=== PATIENT | female | born 1950 | race Caucasian/White ===

== ENCOUNTER → 2023-05-04 10:08 | Outpatient (REF) | payer OTHER, SELFPAY | LOC: HWRAD 10:08 | PROVIDERS: ATTENDING PHYSICIAN Family Medicine | DX: M53.3 Sacrococcygeal disorders, not elsewhere classified (principal) | CPT/HCPCS: 72220 ==

== ENCOUNTER 2023-08-20 08:00 | Inpatient (IN) | payer OTHER, SELFPAY ==
[2023-08-19] VITALS (14 sets, daily range): BP systolic 91–167; BP diastolic 43–83; BMI 24.4; BMI 23.9
--- NOTE | 2023-08-19 00:26 | ED.GENMED ---
History of Present Illness
General
Chief Complaint: Abdominal Pain
Source: patient
Exam Limitations: none
Time Seen by Provider: 08/19/23 00:18
Nursing documentation reviewed up to this point in time: agreed with
Travel History
Have you had any contact with someone who has COVID-19?: No
Do you have any symptoms of coronavirus? Fever > 100 degrees, chills, cough, shortness of breath, sore throat, loss of taste or smell, muscle aches, or headache?: No
History of Present Illness
History of Present Illness:
The patient is a pleasant 72-year-old female with a past medical history of hypertension and hyperlipidemia who comes in with complaints of abdominal pain, nausea vomiting and diarrhea. Patient reports that when she woke up in the morning, she
experienced 1 episode of watery nonbloody diarrhea. Patient reports that she then felt well throughout the day and after eating dinner, experienced sudden onset of nausea, vomiting, sharp abdominal pain and another episode of diarrhea. Patient
reports she is still having severe abdominal pain located in her mid upper abdomen and radiating down to her mid lower abdomen. Patient also complains of severe nausea. She denies any past surgical history to her abdomen. She denies fever. She
denies sick contacts. She denies recent antibiotic use or travel history.
Past History
Past History
ED Past Medical History: HTN and Hypercholesterolemia
ED Past Surgical History: None and Other (Nasal surgery)
Social History
Tobacco: Non-smoker
Alcohol: Other
Drug: None
Personal:
Living: with family
Employment: Other
Family History
Family History: Other
Review of Systems
Review of Systems
Allergies reviewed?: Yes
Other source history: family
All Other Systems: ROS reviewed and negative except as documented in HPI and ROS
Constitutional: Reports no symptoms
EENT: Reports no symptoms
Respiratory: Reports no symptoms
Cardiac: Reports no symptoms
ABD/GI: Reports abdominal pain, nausea, vomiting and diarrhea
: Reports no symptoms
Musculoskeletal: Reports no symptoms
Skin: Reports no symptoms
Neurological: Reports no symptoms
Endocrine: Reports no symptoms
Hematologic/Lymphatic: Reports no symptoms
Psychiatric: Reports no symptoms
Phy Exam
Physical Exam
Physical Exam:
Physical Exam
General: Patient appears slightly anxious uncomfortable but is conversational
Neck: supple. no meningeal signs. normal posterior pharynx
Heart: s1/s2 regular rate and rhythm, no murmur. equal radial pulses.
Lungs: no acute respiratory distress. clear bilaterally
Abdomen: Soft. Nondistended. No pulsatile mass. Epigastric and mid abdominal tenderness. No rebound or guarding
Neuro: alert and oriented. no focal neurological deficits
Skin: no rash
Psychiatric: well kept. interactive and cooperative
Extremities: no edema. no calf tenderness. negative homans. good distal pulses
Course
Orders/Labs/Results
Orders:
Orders
08/19/23 00:25
Morphine Sulfate 4 mg IV NOW STA
08/19/23 00:26
Ondansetron Injectable [Zofran] 4 mg IV NOW STA
08/19/23 00:29
CT Abd/pelvis W Iv Cont Urgent
Comment:
Reason For Exam: ab pain, n/v/d
08/19/23 00:32
Electrocardiogram (*1) Urgent
Reason for Study: Abdominal Pain
EKG- Treatment ONCE
08/19/23 00:44
Complete Blood Count/With Diff Urgent
Comprehensive Metabolic Panel Urgent
Lipase Urgent
08/19/23 00:51
0.9% Sodium Chloride 500 ml [Nss] 500 ml IV ONCE
Abnormal Lab Results
08/19/23
00:44
WBC 16.3 H 10^3/uL
(4.8-10.8)
RBC 5.47 H 10^6/uL
(4.20-5.40)
MCV 72.6 L fL
(81.0-99.0)
MCH 24.5 L pg
(27.0-31.0)
MPV 11.1 H fL
(7.4-10.4)
Abs Immat Gran (auto) 0.1 H 10^3/uL
(0-0.05)
Absolute Neuts (auto) 13.7 H 10^3/uL
(1.4-6.5)
Absolute Monos (auto) 0.7 H 10^3/uL
(0.1-0.6)
Neutrophils % 83.6 H %
(42.2-75.2)
Lymphocytes % 11.2 L %
(20.5-51.1)
BUN 22 H mg/dl
(7-17)
Glucose 142 H mg/dl
(70-99)
Calcium 10.4 H mg/dl
(8.4-10.2)
AST 37 H U/L
(14-36)
Total Protein 8.7 H g/dl
(6.3-8.2)
Albumin 5.3 H g/dl
(3.5-5.0)
08/19/23 00:44
08/19/23 00:44
Vital Signs
Initial and Last Documented VS:
Initial Vital Signs
Temp Pulse Resp BP Pulse Ox
97.8 F 64 24 167/83 100
08/19/23 00:10 08/19/23 00:10 08/19/23 00:10 08/19/23 00:10 08/19/23 00:10
Last Documented Vital Signs
Temp Pulse Resp BP Pulse Ox
97.8 F 64 24 167/83 99
08/19/23 00:10 08/19/23 00:10 08/19/23 00:10 08/19/23 00:10 08/19/23 00:56
MDM/Problems Addressed
Differential Diagnosis Includes:
Acute gastroenteritis, acute appendicitis, acute diverticulitis
MDM/Problems Addressed:
Patient presents with acute abdominal pain, nausea vomiting and diarrhea
Chronic conditions affecting care: HTN
Acute Exacerbation and/or Progression of Chronic Illness:
Patient is acutely hypertensive, however, she is uncomfortable and I feel that hypertension is likely due to this discomfort
Acute Exacerbation and/or Progression of Chronic Illness: HTN
*Radiology
Radiology exam reviewed: radiology read reviewed
*Pulse Oximetry
Patient hypoxic: no
*EKG
Interpreted by ED Provider?: Yes
Interpretation: normal
Comparison EKG: no changes
Rate: normal
Rhythm: sinus arrhythmia
[place]: normal axis
Interval: normal interval
QRS Pattern: normal QRS
Ischemia: no ischemia
*Security Agent Interpretation
Rate: normal
Interpretation: normal
Rhythm: sinus
*Critical Care Note
Total Time (30-74mins, 75-104mins- exclusive of procedures): Not Applicable
ED Attending Note
-
Portions of this chart may have been created with voice recognition software.� Occasional wrong word or��sound alike� substitutions may have occurred due to the inherent limitations of voice recognition software.
Discharge Plan
Departure
Patient Disposition: Admit
Date of Disposition: 08/19/23
Time of Disposition: 02:45
Admit to: Med/Surg
Admit to doctor: Dr Kuhn
Presentation/result/management discussed w/ accepting MD/DO: Dr Kuhn
Patient with high blood pressure during this ER visit?: Yes
Condition: Good
Covid-19: Not Applicable
Discharge Problem:
Acute appendicitis
Prescriptions:
No Action
aspirin 81 MG tablet,delayed release (DR/EC)
81 mg PO DAILY
docosahexaenoic acid-epa 1 CAP capsule
1 cap PO DAILY
rosuvastatin 5 MG tablet
5 mg PO QPM
meclizine 12.5 MG tablet
12.5 mg PO TID Qty: 14 1RF
Referrals:
Michelle Ignacio, DO [Family Provider] -
Interventions
Interventions:
*Risk Screen - Suicide Last Done: 08/19/23 00:10
*General Assessment Last Done: 08/19/23 00:10
*Neglect/Abuse Screening Last Done: 08/19/23 00:10
ED- Fall Risk Assessment Last Done: 08/19/23 00:10
*ED COVID-19 Vaccine History Last Done: 08/19/23 00:10
QJ-Evynye-Lhqshqffgf Assessment Last Done: 08/19/23 00:56
Discharge Date and Time
Print Language: BRITISH
[2023-08-19] MEDS: ZOFRAN 4 MG IV ×4 (00:46→20:55)
[2023-08-19] MEDS: MORPHINE SULFATE 4 MG IV ×2 (00:47→03:02)
[2023-08-19 00:50] LABS: % Basophils 0.4 % (0-2); % Eosinophils 0.2 % (0-6); % Immature Granulocytes 0.4 % (0-0.5); % Lymphocytes 11.2 % (20.5-51.1); % Monocytes 4.2 % (1.7-9.3); % Neutrophils 83.6 % (42.2-75.2); Absolute Basophils 0.1 10^3/uL (0-0.2); Absolute Immature Granulocytes 0.1 10^3/uL (0-0.05); Absolute Lymphocytes 1.8 10^3/uL (1.2-3.4); Absolute Monocytes 0.7 10^3/uL (0.1-0.6); Absolute Neutrophils 13.7 10^3/uL (1.4-6.5); Hematocrit 39.7 % (37.0-47.0); Hemoglobin 13.4 g/dL (12.0-16.0); Mean Corp Hgb Conc. 33.8 g/dL (33.0-37.0); Mean Corpuscular Hgb 24.5 pg (27.0-31.0); Mean Corpuscular Volume 72.6 fL (81.0-99.0); Mean Platelet Volume 11.1 fL (7.4-10.4); Nucleated Red Blood Cells % 0 %; Platelet Count 271 10^3/uL (130-400); Red Blood Cell Count 5.47 10^6/uL (4.20-5.40); White Blood Cell Count 16.3 10^3/uL (4.8-10.8)
[2023-08-19] MEDS: NSS 500 IV (00:52)
[2023-08-19 01:06] LABS: ALT (SGPT) 24 U/L (0-35); AST (SGOT) 37 U/L (14-36); Albumin 5.3 g/dl (3.5-5.0); Alkaline Phosphatase 65 U/L (38-126); Blood Urea Nitrogen 22 mg/dl (7-17); Calcium 10.4 mg/dl (8.4-10.2); Carbon Dioxide 23 mmol/L (22-30); Chloride 102 mmol/L (98-107); Estimated Creatinine Clearance 35 ml/min; Glucose 142 mg/dl (70-99); Lipase 270 U/L (23-300); Potassium 4.2 mmol/L (3.5-5.1); Sodium 140 mmol/L (135-145); Total Protein 8.7 g/dl (6.3-8.2); eGFR 59.12
[2023-08-19] MEDS: ZOSYN 100 IV (03:02)
--- NOTE | 2023-08-19 04:26 | HPS.HSE ---
Family Physician
-
Family Physician: Michelle Ignacio
Medical History
Allergies / Home Medications
Allergies reflects when Allergies were last updated in [facility].
Home Medications with original date entered in [facility]
Physical Exam
Vital Signs
Vital Signs
Temp Pulse Resp BP Pulse Ox
97.8 F 72 17 134/62 96
08/19/23 00:10 08/19/23 04:00 08/19/23 04:00 08/19/23 04:00 08/19/23 04:00
Laboratory Results
-
08/19/23 00:44
08/19/23 00:44
Laboratory Results
Total Bilirubin 1.0 mg/dl (0.2-1.3) 08/19/23 00:44
AST 37 U/L (14-36) H 08/19/23 00:44
ALT 24 U/L (0-35) 08/19/23 00:44
Alkaline Phosphatase 65 U/L (38-126) 08/19/23 00:44
Lipase 270 U/L (23-300) 08/19/23 00:44
Impression/Plan
-
IMPRESSION:
PLAN:
--- NOTE | 2023-08-19 05:39 | HPS.HSE ---
Addendum entered and electronically signed by Codey Kuhn MD 08/19/23 08:46:
Patient seen and examined independently of admitting nurse practitioner. Agree with documented history and physical consistent with my current examination and evaluation.
HPI: 72-year-old female who reports recent history of abdominal bloating over the past few weeks which she has been managing with simethicone. Last night however after having dinner she developed the acute onset of periumbilical abdominal pain
which then localized to the right lower quadrant. She had a few episodes of diarrhea followed by persistent nausea vomiting prompting emergency department evaluation. She has never had pain like this in the past.
Medical history notable for hypertension and hypercholesterolemia. She has not had any prior abdominal surgical history.
Low-grade fevers, vital signs stable
She appears acutely ill and uncomfortable
On abdominal examination there is localized rebound and guarding from the periumbilical, suprapubic and right lower quadrant region.
CT imaging personally reviewed as well as radiologist report. There is a distended appendix filled with appendicoliths with surrounding inflammatory changes coursing from the right lower quadrant towards the lower midline.
Assessment: 72-year-old female with acute appendicitis and secondary localized peritonitis
Reviewed with patient and her at bedside history, examination and CT imaging consistent with acute appendicitis. Discussed both operative and nonoperative management options and associated risks/benefits of approaches. Patient is in
agreement to proceed with appendectomy.
Laparoscopic appendectomy reviewed in detail with the patient. Discussed operative technique utilizing diagrams or drawings, alternative management options, benefits and potential risks such as but not limited to bleeding, infectious or wound
healing complications, iatrogenic injury to surrounding viscera. Discussed the typical postoperative recovery pending operative findings.
Any of the patient's concerns or questions were fully addressed and informed consent was obtained.
Plan: Add on for OR schedule for laparoscopic appendectomy.
Empiric antibiotic coverage with Zosyn.
Nothing by mouth, IV fluid hydration and supportive care awaiting operative room availability.
SCDs for DVT prophylaxis
Original Note:
Family Physician
-
Family Physician: Michelle Ignacio
Chief Complaint
-
'abdominal pain'
History of Present Illness
72 year old patient with PMH of Hypertension and Hyperlipidemia, presents to ER with the c/o Abdominal pain since 7:30 PM last night associated with bloating, severe nausea and vomiting x5 episodes. States Pain is sharp at mid upper abdomen
radiating down to her mid lower abdomen and is constant 10/10. Reports she had bloating for several weeks and she took Simethicone but without relief. Reports chills, but denies fever, shortness of breath or chest pain. Denies any bloody stool, sick
contacts. No surgical history.
Medical History
Past Medical History
Past Medical History: Reports HTN and Hypercholesterolemia
Past Surgical History: Reports Other (Nasal surgery)
Social History
Tobacco: Non-smoker
Alcohol: Occasional
Drug: None
Living: With Family
Family History
Family History: Not pertinent
Allergies / Home Medications
Allergies reflects when Allergies were last updated in [facility].
Home Medications with original date entered in [facility]
Allergy/Medication List:
Allergies
Allergy/AdvReac Type Severity Reaction Status Date / Time
No Known Allergies Allergy Verified 08/19/23 00:10
Home Medications
aspirin 81 mg tablet,delayed release 81 mg PO DAILY 07/24/15
docosahexaenoic acid (dha)-epa 120 mg-180 mg capsule 1 cap PO DAILY 07/24/15
rosuvastatin 5 mg tablet 5 mg PO QPM 07/24/15
meclizine 12.5 mg tablet 12.5 mg PO TID #14 tabs 07/25/15
Review of Systems
-
History Source: Patient
A 12 point ROS was completed and negative except as noted: Yes
Constitutional: Reports No Symptoms
EENT: Reports No Symptoms
Respiratory: Reports No Symptoms
Cardiac: Reports No Symptoms
Abdomen/GI: Reports Abdominal Pain, Nausea and Vomiting
: Reports No Symptoms
Musculoskeletal: Reports No Symptoms
Skin: Reports No Symptoms
Neurological: Reports No Symptoms
Endocrine: Reports No Symptoms
Hematologic/Lymphatic: Reports No Symptoms
Psych: Reports No Symptoms
Physical Exam
Vital Signs
Vital Signs
Temp Pulse Resp BP Pulse Ox
97.8 F 72 17 134/62 96
08/19/23 00:10 08/19/23 04:00 08/19/23 04:00 08/19/23 04:00 08/19/23 04:00
Physical Exam
General: Well Developed, Well Nourished and No Apparent Distress
HEENT: NormoCephalic, Moist mucous membranes and Atraumatic
Respiratory: Clear and Non Labored Respirations
Cardiac: S1/S2 and Regular Rhythm
Breast: Deferred by me
GI: Soft, Normal Bowel Sounds and Tender (+ McBurney point )
Rectal: Deferred by Provider
Genito-urinary: Deferred by me
Musculoskeletal: No Clubbing, No Cyanosis and No Edema
Skin: Warm and Dry
Neuro: Awake, Oriented, AO x 3 and Nonfocal/grossly intact
Hematologic/Lymphatic: No Lymphadenopathy
Psych: Calm and Intact Judgment/Insight
Laboratory Results
-
08/19/23 00:44
08/19/23 00:44
Laboratory Results
Total Bilirubin 1.0 mg/dl (0.2-1.3) 08/19/23 00:44
AST 37 U/L (14-36) H 08/19/23 00:44
ALT 24 U/L (0-35) 08/19/23 00:44
Alkaline Phosphatase 65 U/L (38-126) 08/19/23 00:44
Lipase 270 U/L (23-300) 08/19/23 00:44
Data Reviewed
-
CT Scan: Report Reviewed by me
Lab Data: Labs Reviewed by me
Impression/Plan
-
72 year old female with c/o abdomen pain
# Abdomen pain likely due to Acute Appendicitis
-CT Abdomen: Findings suggests Acute Appendicitis
-WBC 16.3
-Continue IVF
-Continue Zosyn
-Continue IV Zofran for nausea
-Continue IV Morphine
for pain
# Hypertension
# Hyperlipemia
SCD Prophylaxis: Lovenox SQ
Full Code
--- NOTE | 2023-08-19 06:00 | PTCARENOTE ---
Pt arrived 2S via stretcher from ED. Pt was able to ambulate to bed. VSS. IVF infusing. Pts at the bedside. Bed iin lowest position and locked. Call wilkinson with in reach.
[2023-08-19] MEDS: NSS 1000 IV ×3 (06:40→23:04)
[2023-08-19] MEDS: ZOSYN 50 IV ×2 (08:38→20:50)
[2023-08-19] MEDS: FLUSH (NSS) 1 FLUSH IV (08:41)
[2023-08-19] MEDS: MORPHINE SULFATE 2 MG IV (08:41)
--- NOTE | 2023-08-19 11:06 | CM ---
Met with patient at the bedside; initial assessment completed
SANCHEZ explained; form signed @[id number]
Scheduled for OR today; NPO
Pharmacy verified: [facility] [address] [place] [address]
Patient reported that she and her live in a townhouse; 2 steps to enter; 14 steps between floors; powder room on the 1st floor; 2nd floor bathroom has tub w/shower
PLOF: reports she is independent with ambulation, stairs, and ADLs; drives
DME: none
SNF/rehab/home health utilization history: none
Transportation: will provide ride home
Plan: discharge to home when medically stable; CM will monitor for needs
--- NOTE | 2023-08-19 12:03 | W.SUR.PREOP ---
Pre-Operative Surgical Note
-
I have examined this patient prior to the performance of the scheduled procedure.
The patient's condition is unchanged from the time of the current History and
Physical and the patient is able to undergo the scheduled procedure.
[2023-08-19] MEDS: ZOSYN IV (12:37)
--- NOTE | 2023-08-19 13:22 | W.IMMPOSTOP ---
Addendum entered and electronically signed by Codey Kuhn MD 08/19/23 13:34:
#[id number]
Original Note:
Surgical Immed Post Op Note
-
Primary Surgeon: Hattie
Assisting Surgeon: Marquez ROJO
Pre-op Diagnosis: Acute appendicitis
Post-op Diagnosis: Purulent acute appendicitis with localized peritonitis
Procedure Performed: Laparoscopic appendectomy
Anesthesia Type: GETA +0.25% Marcaine
Specimen / Cultures: Appendix
Estimated Blood Loss: 6 mL
Complications: None immediate
Operative Findings: Distended, acutely inflamed appendix with surrounding inflammatory adhesions. Patchy gangrenous changes of appendiceal wall but no free perforation. Mesoappendix divided with harmonic. Base of the appendix taken flush with the
cecum utilizing Endo MANDY maciel 45 mm stapler. Surrounding purulent free fluid adjacent to the appendix in the mid pelvis all aspirated out and irrigated till clear. No abscess.
Plan: Start initially with liquid diet postoperatively monitoring for ileus. Continue Zosyn and anticipating discharge home on approximately 5-day course of oral antibiotic therapy
Patient's updated postoperatively via phone call
--- NOTE | 2023-08-19 14:50 | PTCARENOTE ---
Patient returned to her room from [facility] post laparoscopic appendectomy.The patient denies any pain at present.Vital signs are stable.All 4 lap sites are clean with no drainage.The patient is in her bed with the call wilkinson in reach.
[2023-08-19] MEDS: LOVENOX 40 MG SC (17:30)
[2023-08-19] MEDS: MYLICON 80 MG PO (21:23)
[2023-08-20] MEDS: ZOSYN 50 IV ×4 (01:39→20:21)
[2023-08-20 03:46] VITALS: BP 95/52
[2023-08-20] MEDS: TORADOL 10 MG IV ×2 (05:14→13:23)
[2023-08-20] MEDS: MYLICON 80 MG PO (05:28)
--- NOTE | 2023-08-20 07:56 | W.PN.GS2 ---
Today's Communication / Plan
-
`
Assessment / Plan
-
Assessment: 72 y/o female POD#1 s/p lap appy for acute appendicitis with localized peritonitis and purulence but no abscess
AFVSS
doing well post op
Plan: multimodal pain control options
continue IVF but at reduced rate
OOBTC/ambulating
hold on clears until more robust GI recovery and nausea subsiding
zosyn for appendicitis 7 day total post op abx course; d/c on augmentin
lovenox/scds/ambulation for VTEp
Subjective Data
-
Date of Service: August 20, 2023
pt seen and examined
feels bloated but starting to pass gas
naya clears
nausea at times but no vomiting
ambulating halls, voiding
Objective Data
-
Intake and Output
08/19/23 08/20/23 08/21/23
06:59 06:59 06:59
Intake Total 2950 / 2950
Balance 2950 / 2950
Intake:
Oral fluids 1380 / 1380
IV fluids (Total) 1420 / 1420
normosol 100 / 100
IV piggybacks 150 / 150
Other:
Number of approximated MODERATE 3
amounts of urine
Vital Signs
Temp Pulse Resp BP Pulse Ox
98.1 F 79 20 95/52 94
08/20/23 03:46 08/20/23 03:46 08/20/23 03:46 08/20/23 03:46 08/20/23 03:46
Lab Results
08/19/23 00:44
08/19/23 00:44
Calcium 10.4 mg/dl (8.4-10.2) H 08/19/23 00:44
Total Bilirubin 1.0 mg/dl (0.2-1.3) 08/19/23 00:44
AST 37 U/L (14-36) H 08/19/23 00:44
ALT 24 U/L (0-35) 08/19/23 00:44
Alkaline Phosphatase 65 U/L (38-126) 08/19/23 00:44
Total Protein 8.7 g/dl (6.3-8.2) H 08/19/23 00:44
Albumin 5.3 g/dl (3.5-5.0) H 08/19/23 00:44
Physical Exam
-
NAD AAOx3
ABD: softly distended, incisional and RLQ tenderness
incisions with glue dressings and localized ecchymosis, no hematomas
[2023-08-20 07:57] VITALS: BP 92/50
[2023-08-20] MEDS: NSS 1000 IV ×2 (08:05→20:22)
[2023-08-20] MEDS: TYLENOL 1000 MG PO (11:01)
[2023-08-20 11:28] VITALS: BP 93/49
[2023-08-20] MEDS: LEXAPRO 10 MG PO (13:26)
--- NOTE | 2023-08-20 14:24 | CM ---
Patient seen bedside wit spouse.
S/p appe yesterday.
Continues IV anbx.
Switched to inpatient. IMM provided.
[id number] and spouse are of CM availability should needs arise.
Plan: home no needs anticipated.
[2023-08-20 15:20] VITALS: BP 94/50
[2023-08-20] MEDS: DILAUDID 0.5 MG IV ×2 (17:03→21:42)
[2023-08-20] MEDS: LOVENOX 40 MG SC (17:52)
[2023-08-20 22:40] VITALS: BP 107/49
[2023-08-20 23:17] VITALS: BP 107/49
[2023-08-21] MEDS: ZOSYN 50 IV ×4 (01:57→20:15)
[2023-08-21 07:50] VITALS: BP 117/61
[2023-08-21] MEDS: NSS 1000 IV (08:27)
[2023-08-21 08:28] LABS: Hematocrit 32.9 % (37.0-47.0); Hemoglobin 10.5 g/dL (12.0-16.0); Mean Corp Hgb Conc. 31.9 g/dL (33.0-37.0); Mean Corpuscular Hgb 24.6 pg (27.0-31.0); Mean Platelet Volume 12.1 fL (7.4-10.4); Platelet Count 232 10^3/uL (130-400); Red Blood Cell Count 4.27 10^6/uL (4.20-5.40); Red Cell Dist. Width 15.7 % (11.5-14.5)
[2023-08-21] MEDS: LEXAPRO 10 MG PO (08:28)
[2023-08-21] MEDS: ASPIR LOW (ENTERIC COATED) 81 MG PO (08:28)
[2023-08-21] MEDS: TORADOL 10 MG IV (08:28)
[2023-08-21] MEDS: DILAUDID 0.5 MG IV ×2 (08:29→20:17)
[2023-08-21] MEDS: FLUSH (NSS) 2 FLUSH IV (08:29)
[2023-08-21 08:31] LABS: Blood Urea Nitrogen 15 mg/dl (7-17); Calcium 7.7 mg/dl (8.4-10.2); Carbon Dioxide 26 mmol/L (22-30); Chloride 110 mmol/L (98-107); Estimated Creatinine Clearance 42 ml/min; Glucose 88 mg/dl (70-99); Potassium 3.8 mmol/L (3.5-5.1); Sodium 143 mmol/L (135-145); eGFR > 60.00
--- NOTE | 2023-08-21 10:03 | CM ---
Chart reviewed and home at discharge. No needs
Plan; Home when stable, no needs.
[2023-08-21 12:18] LABS: Hematocrit 30.3 % (37.0-47.0); Hemoglobin 9.4 g/dL (12.0-16.0)
--- NOTE | 2023-08-21 15:05 | W.PN.GS2 ---
Addendum entered and electronically signed by Jose Ramon Zeng MD 08/21/23 15:20:
I saw and examined the patient.
The SCIENTIFIC TECHNICAL WRITER's note was reviewed and I agree with the note.
Comment:
POD 2 lap appendectomy
Overall, doing well. Denies N/V. Passing flatus, but still feeling bloated. Pain somewhat controlled.
AFVSS, ABD soft, mildly distended, appropriately tender, no R/G; incisions well-approximated without erythema or drainage
WBC 12.0 from 16, Hb 10.5, repeat was 9.4, CR 0.8
� Advance to full liquids
� Continue pain control with Tylenol, Toradol and Dilaudid as needed
� Continue Zosyn for suppurative, nonperforated, appendicitis; will discharge with course of Augmentin, 7 days total postop
� Continue DVT PPx with Lovenox
� OOB, encourage IS, ambulate
Original Note:
Today's Communication / Plan
-
Full liquid diet
Assessment / Plan
-
Assessment: 72 y/o female POD#2 s/p lap appy for acute appendicitis with localized peritonitis and purulence but no abscess
AFVSS
doing well post op
resolving ileus, now with BM's. Distention still present but improved.
mild acute anemia secondary to hemodilution and intraop losses, no concern for active bleeding
Plan: multimodal pain control options
advance to FLD
stop IVF
OOBTC/ambulating
zosyn for appendicitis 7 day total post op abx course; d/c on augmentin
lovenox/scds/ambulation for VTEp
Subjective Data
-
Date of Service: August 21, 2023
Patient seen and examined at bedside with Dr. Zeng. Denies n/v. Passing liquid stools, no bleeding present. Still feeling bloated but much better than previous.
Objective Data
-
Intake and Output
08/20/23 08/21/23 08/22/23
06:59 06:59 06:59
Intake Total 2950 / 2950 3320 / 3320
Balance 2950 / 2950 3320 / 3320
Intake:
Oral fluids 1380 / 1380 1360 / 1360
IV fluids (Total) 1420 / 1420 1760 / 1760
normosol 100 / 100
IV piggybacks 150 / 150 200 / 200
Other:
Number of approximated MODERATE 3 2
amounts of urine
Vital Signs
Temp Pulse Resp BP Pulse Ox
97.8 F 75 14 117/61 97
08/21/23 07:50 08/21/23 07:50 08/21/23 07:50 08/21/23 07:50 08/21/23 07:50
Lab Results
08/21/23 12:04
08/21/23 08:01
Calcium 7.7 mg/dl (8.4-10.2) L D 08/21/23 08:01
Total Bilirubin 1.0 mg/dl (0.2-1.3) 08/19/23 00:44
AST 37 U/L (14-36) H 08/19/23 00:44
ALT 24 U/L (0-35) 08/19/23 00:44
Alkaline Phosphatase 65 U/L (38-126) 08/19/23 00:44
Total Protein 8.7 g/dl (6.3-8.2) H 08/19/23 00:44
Albumin 5.3 g/dl (3.5-5.0) H 08/19/23 00:44
Physical Exam
-
NAD AAOx3
ABD: softly distended, incisional tenderness
incisions with glue dressings and localized ecchymosis, no hematomas
[2023-08-21 15:10] VITALS: BP 98/54
[2023-08-21] MEDS: LOVENOX 40 MG SC (17:21)
[2023-08-21 18:15] LABS: Blood Urea Nitrogen 15 mg/dl (7-17); Calcium 8.2 mg/dl (8.4-10.2); Carbon Dioxide 24 mmol/L (22-30); Chloride 111 mmol/L (98-107); Estimated Creatinine Clearance 37 ml/min; Glucose 91 mg/dl (70-99); Potassium 3.7 mmol/L (3.5-5.1); Sodium 142 mmol/L (135-145); eGFR > 60.00
[2023-08-21 23:00] VITALS: BP 114/57
[2023-08-22] MEDS: ZOSYN 50 IV ×4 (01:23→20:00)
[2023-08-22] MEDS: DILAUDID 0.5 MG IV ×2 (01:23→22:39)
[2023-08-22 07:35] VITALS: BP 131/63
[2023-08-22 07:51] LABS: Hematocrit 30.7 % (37.0-47.0); Hemoglobin 9.6 g/dL (12.0-16.0); Mean Corp Hgb Conc. 31.3 g/dL (33.0-37.0); Mean Corpuscular Hgb 24.5 pg (27.0-31.0); Mean Corpuscular Volume 78.3 fL (81.0-99.0); Mean Platelet Volume 12.7 fL (7.4-10.4); Platelet Count 217 10^3/uL (130-400); Red Blood Cell Count 3.92 10^6/uL (4.20-5.40); Red Cell Dist. Width 15.3 % (11.5-14.5); White Blood Cell Count 7.6 10^3/uL (4.8-10.8)
[2023-08-22] MEDS: LEXAPRO 10 MG PO (08:30)
[2023-08-22] MEDS: FLUSH (NSS) 1 FLUSH IV ×2 (08:30→13:40)
[2023-08-22] MEDS: ASPIR LOW (ENTERIC COATED) 81 MG PO (08:30)
[2023-08-22] MEDS: TYLENOL 1000 MG PO (08:33)
--- NOTE | 2023-08-22 12:20 | W.PN.GS2 ---
Addendum entered and electronically signed by Jose Ramon Zeng MD 08/22/23 12:59:
I saw and examined the patient.
The MOTORCYCLE DELIVERER's note was reviewed and I agree with the note.
Comment:
POD 3 lap appendectomy
Overall, doing well. Had some nausea overnight, but now improved and tolerated some bland food. Passing flatus, less bloated, had a BM. Pain controlled.
AFVSS, ABD soft, mildly distended (improved), appropriately tender, no R/G; incisions well-approximated without erythema or drainage
WBC 7.6 from 12.0, Hb 9.6 from 9.4, Cr 0.9
� Advance to low residue
� Continue pain control with Tylenol, Toradol and Dilaudid as needed
� Continue Zosyn for suppurative, nonperforated, appendicitis; will discharge with course of Augmentin, 7 days total postop
� Continue DVT PPx with Lovenox
� OOB, encourage IS, ambulate
Dispo�okay for discharge once tolerating diet likely tomorrow, possibly this afternoon
Original Note:
Today's Communication / Plan
-
LRD
Assessment / Plan
-
Assessment: 72 y/o female POD#3 s/p lap appy for acute appendicitis with localized peritonitis and purulence but no abscess
AFVSS
resolving ileus, now with BM's. Distention improved, but still with poor PO intake
Labs stable
Plan: multimodal pain control options
advance to LRD
continue off IVF
OOBTC/ambulating
zosyn for appendicitis 7 day total post op abx course; d/c on augmentin
lovenox/scds/ambulation for VTEp
dispo to home likely tomorrow if tolerating diet
Subjective Data
-
Date of Service: August 22, 2023
Patient seen and examined at bedside with Dr. Zeng. Tolerating diet but did have mild nausea with pills this am. Passing flatus and stools. Tolerated toast this am without nausea. Doesn't feel quite herself yet
Objective Data
-
Intake and Output
08/21/23 08/22/2324
06:59 06:59 06:59
Intake Total 3320 / 3320 1979
Balance 3320 / 3320 1979
Intake:
Oral fluids 1360 / 1360 1080 / 1080
IV fluids (Total) 1760 / 1760 800 / 800
IV piggybacks 200 / 200 100 / 100
Other:
Number of approximated MODERATE 2 3
amounts of urine
Number of approximated LARGE 2
amounts of urine
Vital Signs
Temp Pulse Resp BP Pulse Ox
98.4 F 67 14 131/63 97
08/22/23 07:35 08/22/23 07:35 08/22/23 07:35 08/22/23 07:35 08/22/23 07:35
Lab Results
08/22/23 06:21
08/21/23 17:47
Calcium 8.2 mg/dl (8.4-10.2) L 08/21/23 17:47
Total Bilirubin 1.0 mg/dl (0.2-1.3) 08/19/23 00:44
AST 37 U/L (14-36) H 08/19/23 00:44
ALT 24 U/L (0-35) 08/19/23 00:44
Alkaline Phosphatase 65 U/L (38-126) 08/19/23 00:44
Total Protein 8.7 g/dl (6.3-8.2) H 08/19/23 00:44
Albumin 5.3 g/dl (3.5-5.0) H 08/19/23 00:44
Physical Exam
-
NAD AAOx3
ABD: softly distended (improved), incisional tenderness
incisions with glue dressings and localized ecchymosis, no hematomas
[2023-08-22] MEDS: ZOFRAN 4 MG IV (13:40)
[2023-08-22 15:05] VITALS: BP 149/69
[2023-08-22] MEDS: LOVENOX 40 MG SC (17:51)
[2023-08-22 23:14] VITALS: BP 142/69
[2023-08-23] MEDS: ZOSYN 50 IV ×2 (01:57→09:03)
[2023-08-23 07:06] VITALS: BP 130/76
[2023-08-23] MEDS: ASPIR LOW (ENTERIC COATED) 81 MG PO (09:02)
[2023-08-23] MEDS: LEXAPRO 10 MG PO (09:02)
--- NOTE | 2023-08-23 09:43 | W.PN.GS2 ---
Today's Communication / Plan
-
d/c to home
Assessment / Plan
-
Assessment: 72 y/o female POD#4 s/p lap appy for acute appendicitis with localized peritonitis and purulence but no abscess
AFVSS
+Stools/flatus. tolertaing diet. Still with poor appetite
mild acute anemia secondary to hemodilution from IVF with expected losses intraop. No evidence of active bleeding
Plan: multimodal pain control options
Continue diet
OOBTC/ambulating
zosyn for appendicitis 7 day total post op abx course; d/c on augmentin
lovenox/scds/ambulation for VTEp
discharge to home today
Subjective Data
-
Date of Service: August 23, 2023
Patient seen and examined at bedside with Dr. Philip. Evans n/v. Tolerating diet, but poor appetite. Passing flatus/stools.
Objective Data
-
Intake and Output
08/22/23 08/23/23 08/24/23
06:59 06:59 06:59
Intake Total 1979 1060 / 1060
Balance 1979 1060 / 1060
Intake:
Oral fluids 1080 / 1080 960 / 960
IV fluids (Total) 800 / 800
IV piggybacks 100 / 100 100 / 100
Other:
Number of approximated MODERATE 3 3
amounts of urine
Number of approximated LARGE 2
amounts of urine
Number of unmeasured liquid
stools
Rectum 2
Vital Signs
Temp Pulse Resp BP Pulse Ox
98.4 F 69 17 130/76 94
08/23/23 07:06 08/23/23 07:06 08/23/23 07:06 08/23/23 07:06 08/23/23 07:06
Lab Results
08/22/23 06:21
08/21/23 17:47
Calcium 8.2 mg/dl (8.4-10.2) L 08/21/23 17:47
Total Bilirubin 1.0 mg/dl (0.2-1.3) 08/19/23 00:44
AST 37 U/L (14-36) H 08/19/23 00:44
ALT 24 U/L (0-35) 08/19/23 00:44
Alkaline Phosphatase 65 U/L (38-126) 08/19/23 00:44
Total Protein 8.7 g/dl (6.3-8.2) H 08/19/23 00:44
Albumin 5.3 g/dl (3.5-5.0) H 08/19/23 00:44
Physical Exam
-
NAD AAOx3
ABD: ND, soft, incisional tenderness
incisions with glue dressings and localized ecchymosis, no hematomas
--- NOTE | 2023-08-23 10:23 | PN.CDI ---
CDI
- -
CDI:
Physician Documentation Request
Admit Date: 08/20/23 08:00
Dear General Surgery,
Patient admitted with appendicitis.
08/20 General Surgery PN: 'mild acute anemia secondary to hemodilution and intraop losses, no concern for active bleeding'
Laboratory Tests
08/19/23 08/21/23 08/21/23
00:44 08:02 12:04
Hgb 13.4 10.5 L 9.4 L
Hct 39.7 32.9 L 30.3 L
Based on the above, could you clarify, in your progress note, which of the following is the most likely type of anemia you are evaluating, monitoring and/or treating?
Acute anemia multifactorial due to hemodilution and blood loss
Acute anemia due to hemodilution
Other
Use of terms such as suspected, likely, concern for, or probable (associated with a specific diagnosis that is being evaluated, monitored, or treated as if it exists) are acceptable and can be coded in the inpatient setting, when documented at the
time of discharge.
Thank you,
Diana Taylor RN, BSN
CDI Specialist
Available via [place] text
Please use your independent medical judgment in providing your response.
[2023-08-23 11:45] VITALS: BP 145/89
--- NOTE | 2023-08-23 12:21 | CM ---
Hermila is s/p lap appy and has been cleared for discharge. Her will take her home via car. No other needs identified at this time.
Plan: Discharge to home with no needs.
--- NOTE | 2023-08-23 12:40 | W.DCSUMMARY ---
Discharge Summary
Discharge Data
Date of Admission: 08/20/23
Date of Discharge: 08/23/23
-
Pending Results: No
Hospital Course
Ms Farrell is a 72 yo female who presented with abdominal pain with exam and imaging consistent with acute appendicitis. She was taken to the operating room for laparoscopic appendectomy with purulent appendicitis and localized peritonitis noted
intraoperatively. She tolerated the procedure well with mild incisional brusing noted post operatively. Diet was slowly advanced post operatively has she had slow return of bowel function. She was continued on IV antibiotics as an inpatient with
transition to PO Augmentin upon discharge for a total of 7 day course. Outpatient follow up planned in the coming weeks.
Discharge Plan
-
Patient Disposition: Home (Routine Discharge)
Discharge Diagnosis/Procedures: Acute appendicitis. Laparoscopic appendectomy
Condition: Good
Diet: As tolerated and Regular
Additional Diets: Smaller meals initially after surgery as abdominal bloating and distention may be common for the first few days
Activity: No strenuous activity
Additional Activity: No lifting over 20 pounds for 3 to 4 weeks postoperatively. Walking, standing, stairs and routine light activities are all okay as tolerated
Driving Restrictions: No driving 2 to 3 days or if using narcotics
Bathing Restrictions: OK to Shower
Wound Care: Glue at surgical sites typically peels off in 2 to 3 weeks
Referrals:
Codey Kuhn MD [Active] - in two weeks
Prescriptions:
New
tramadol 50 mg tablet
25 - 50 mg PO Q6HPRN PRN (Reason: severe pain/breakthrough pain) Qty: 5 0RF
ibuprofen 200 mg tablet
400 - 600 mg PO Q6HPRN PRN (Reason: moderate pain) Qty: 1 0RF
acetaminophen [acetaminophen] 325 mg tablet
650 mg PO Q4HPRN PRN (Reason: mild pain) Qty: 1 0RF
amoxicillin-pot clavulanate 875-125 mg tablet
1 tab PO Q12 Qty: 8 0RF
Continued
aspirin 81 MG tablet,delayed release (DR/EC)
81 mg PO DAILY
rosuvastatin 5 MG tablet
10 mg PO QPM
escitalopram oxalate 10 mg Tablet
10 mg PO DAILY
atorvastatin 80 mg Tablet
80 mg PO DAILY
Discharge Orders:
Discharge Patient (As Directed); Ordered 08/23/23
Ordered By: Earline Degroot
Discharge Date and Time
Print Language: SWEDISH
== END 2023-08-23 12:46 | disposition home or self-care (01) | DRG 398 ==
LOC: 2 SOUTH 08:00
PROVIDERS: Registered Nurse; ADMITTING PHYSICIAN Surgery; EMERGENCY PHYSICIAN Emergency Medicine; FAMILY PHYSICIAN Family Medicine
PROC: 0DTJ4ZZ Resection of Appendix, Percutaneous Endoscopic Approach (ICD-10-PCS; 2023-08-19)
DX: K35.31 Acute appendicitis with localized peritonitis and gangrene, without perforation (principal); D62 Acute posthemorrhagic anemia; K56.7 Ileus, unspecified; K91.89 Other postprocedural complications and disorders of digestive system; E78.00 Pure hypercholesterolemia, unspecified; I10 Essential (primary) hypertension; Z79.82 Long term (current) use of aspirin
CPT/HCPCS: 88304; 74177; 80048; 80053; 83690; 85014; 85018; 85025; 85027; 93005; 96361; 96365; 96375; 96376; 99285; Q9967

== ENCOUNTER → 2023-12-06 14:18 | Outpatient (REF) | payer OTHER, SELFPAY | LOC: HWWDC 14:18 | PROVIDERS: ATTENDING PHYSICIAN Family Medicine | DX: Z12.31 Encounter for screening mammogram for malignant neoplasm of breast (principal) | CPT/HCPCS: 77063; 77067 ==

== ENCOUNTER → 2024-08-11 14:48 | Outpatient (REF) | payer OTHER, SELFPAY | LOC: HWRAD 14:48 | PROVIDERS: ATTENDING PHYSICIAN Nurse Practitioner Family | DX: R05.9 Cough, unspecified (principal) | CPT/HCPCS: 71046 ==

== ENCOUNTER → 2025-01-02 13:37 | Outpatient (REF) | payer OTHER, SELFPAY | LOC: HWWDC 13:37 | PROVIDERS: ATTENDING PHYSICIAN Family Medicine | DX: Z12.31 Encounter for screening mammogram for malignant neoplasm of breast (principal) | CPT/HCPCS: 77063; 77067 ==